=== PATIENT | female | born 1955 | race Caucasian/White ===

== ENCOUNTER → 2016-11-17 | Outpatient (CLI) | payer BC ==
--- NOTE | 2016-11-17 13:39 | CR ---
EXAMINATION: Left knee HISTORY: Osteoarthritis COMPARISON: 03/03/2016 TECHNIQUE: 2 views FINDINGS/IMPRESSION: There is moderate joint space narrowing within the medial compartment of the le ft knee. There is likely a trace suprapatellar joint effusion with moderate osteophytes within all 3 compartments. The osseous structures appear mildly osteopenic without an acute osseous abnormality demonstrated.
== END ==
LOC: MW.CHORTHO 08:00
PROVIDERS: ATTEND Physician Assistant
DX: M17.12 Unilateral primary osteoarthritis, left knee (principal)
CPT/HCPCS: 73560-26-LT; 73560-LT

== ENCOUNTER 2017-08-06 04:42 | Emergency (ER) | payer BC ==
--- NOTE | 2017-08-06 05:01 | EDM.PDOC ---
ED HPI GENERAL MEDICAL PROBLEM - General Stated Complaint: SWELLING IN RIGHT LEG Time Seen by Provider: 08/06/17 04:58 Source of Information: Reports: Patient - History of Present Illness INITIAL COMMENTS - FREE TEXT/NARRATIVE: HISTORY AND PHYSICAL: History of present illness: [Patient presents with right lower extremity swelling as compared to left, she did have some reddening up to her calf level which is improved or still some mild redness no tenderness no fever nausea vomiting chills sweats ] Review of systems: As per history of present illness and below otherwise all systems reviewed and negative. Past medical history: As per history of present illness and as reviewed below otherwise noncontributory. Surgical history: As per history of present illness and as reviewed below otherwise noncontributory. Social history: No reported history of drug or alcohol abuse. Family history: As per history of present illness and as reviewed below otherwise noncontributory. Physical exam: HEENT: Atraumatic, normocephalic, pupils reactive, negative for conjunctival pallor or scleral icterus, mucous membranes moist, throat clear, neck supple, nontender, trachea midline. Lungs: Clear to auscultation, breath sounds equal bilaterally, chest nontender. Heart: S1S2, regular, negative for clicks, rubs, or JVD. Abdomen: Soft, nondistended, nontender. Negative for masses or hepatosplenomegaly. Negative for costovertebral tenderness. Pelvis: Stable nontender. Genitourinary: Deferred. Rectal: Deferred. Extremities: Atraumatic, negative for cords or calf pain. Neurovascular unremarkable. Neuro: Awake, alert, oriented. Cranial nerves II through XII unremarkable. Cerebellum unremarkable. Motor and sensory unremarkable throughout. Exam nonfocal. Diagnostics: [Venous duplex ultrasound ] Therapeutics: [0 though 15 mg by mouth twice a day 21 days Follow-up with primary care for continued management First dose of 0 though provided now ] Impression: DVT Definitive disposition and diagnosis as appropriate pending reevaluation and review of above. - Related Data Allergies Allergy/AdvReac Type Severity Reaction Status Date / Time No Known Allergies Allergy Verified 08/06/17 05:08 Home Meds: Home Meds Ascorbic Acid [Vitamin C] 1 tab PO DAILY 12/10/15 [History] Aspirin [Garrett Aspirin] 81 mg PO DAILY 12/10/15 [History] Calcium Carbonate/Vitamin D3 [Calcium 600-Vit D3 400 Tablet] 1 tab PO DAILY 01/17 [History] Celecoxib [CeleBREX] 200 mg PO DAILY 12/10/15 [History] Cholecalciferol (Vitamin D3) [Vitamin D] 1,000 units PO DAILY 12/10/15 [History] Hydrochlorothiazide 25 mg PO DAILY 12/10/15 [History] Levothyroxine Sodium 88 mcg PO DAILY 12/10/15 [History] Lisinopril 20 mg PO DAILY 12/10/15 [History] Metoprolol Succinate 50 mg PO BEDTIME 12/10/15 [History] Past Medical History HEENT History: Reports: None Cardiovascular History: Reports: Hypertension Respiratory History: Reports: None Musculoskeletal History: Reports: Other (See Below) Other Musculoskeletal History: bilateral knee pain-receives steroid injection, will be scheduling surgery soon. Neurological History: Reports: None Psychiatric History: Reports: None Endocrine/Metabolic History: Reports: Hypothyroidism, Obesity/BMI 30+ Hematologic History: Reports: Blood Transfusion(s) Other Hematologic History: blood transfusion due to complications following gallbladder surgery Immunologic History: Reports: None Oncologic (Cancer) History: Other Oncologic History: endometrial cancer-had surgery, no chemotherapy or radiation. Dermatologic History: Reports: None - Past Surgical History Head Surgeries/Procedures: Reports: None GI Surgical History: Reports: Cholecystectomy Female Surgical History: Reports: Hysterectomy Endocrine Surgical History: Reports: Thyroidectomy Social & Family History - Tobacco Use Smoking Status *Q: Never Smoker - Recreational Drug Use Recreational Drug Use: No Drug Use in Last 12 Months: No ED ROS GENERAL - Review of Systems Review Of Systems: ROS reveals no pertinent complaints other than HPI. ED EXAM, GENERAL - Physical Exam Exam: See Below Course - Vital Signs Last Recorded V/S: Last Vital Signs Temp 98.4 F 08/06/17 05:08 Pulse 62 08/06/17 05:08 Resp 14 08/06/17 05:08 BP 132/60 08/06/17 05:08 Pulse Ox 97 08/06/17 05:08 - Orders/Labs/Meds Orders: Active Orders 24 hr Category Date Time Status Venous Doppler Lwr Ext Rt [US] Stat Exams 08/06/17 04:58 Taken Labs: Laboratory Tests 08/06/17 08/06/17 08/06/17 Range/Units 06:30 06:30 06:30 WBC 6.17 (4.0-11.0) K/uL RBC 3.86 L (4.30-5.90) M/uL Hgb 12.6 (12.0-16.0) g/dL Hct 37.5 (36.0-46.0) % MCV 97.2 (80.0-98.0) fL MCH 32.6 H (27.0-32.0) pg MCHC 33.6 (31.0-37.0) g/dL RDW Std Deviation 44.6 (28.0-62.0) fl RDW Coeff of Oliva 13 (11.0-15.0) % Plt Count 192 (150-400) K/uL MPV 10.10 (7.40-12.00) fL Neut % (Auto) 45.2 L (48.0-80.0) % Lymph % (Auto) 41.2 H (16.0-40.0) % [place] % (Auto) 10.7 (0.0-15.0) % Eos % (Auto) 2.6 (0.0-7.0) % Baso % (Auto) 0.3 (0.0-1.5) % Neut # (Auto) 2.8 (1.4-5.7) K/uL Lymph # (Auto) 2.5 H (0.6-2.4) K/uL [place] # (Auto) 0.7 (0.0-0.8) K/uL Eos # (Auto) 0.2 (0.0-0.7) K/uL Baso # (Auto) 0.0 (0.0-0.1) K/uL Nucleated RBC % 0.0 /100WBC Nucleated RBCs # 0 K/uL INR 1.01 Sodium 142 (136-146) mmol/L Potassium 4.0 (3.5-5.1) mmol/L Chloride 108 (98-110) mmol/L Carbon Dioxide 25 (21-31) mmol/L BUN 21 (6.0-23.0) mg/dL Creatinine 0.7 (0.6-1.5) mg/dL Est Cr Clr Drug Dosing 60.62 mL/min Estimated GFR (MDRD) > 60.0 ml/min Glucose 95 (60-110) mg/dL Calcium 9.2 (8.8-10.8) mg/dL Total Bilirubin 0.5 (0.1-1.5) mg/dL AST 62 H (5-40) IU/L ALT 45 (8-54) IU/L Alkaline Phosphatase 134 (40-150) Total Protein 6.6 (6.0-8.0) g/dL Albumin 4.0 (3.4-4.8) g/dL Globulin 2.6 (2.0-3.5) g/dL Albumin/Globulin Ratio 1.5 (1.3-2.8) Meds: Medications Discontinued Medications Generic Name Dose Route Start Last Admin Trade Name Freq PRN Reason Stop Dose Admin Rivaroxaban 15 mg 08/06/17 06:51 Xarelto PO 08/06/17 06:52 NOW STA Departure - Departure Time of Disposition: 07:02 Disposition: Home, Self-Care 01 Condition: Good Clinical Impression: DVT (deep venous thrombosis) - Discharge Information Referrals: Mack Mcclain MD [Primary Care Provider] - Additional Instructions: Medication as prescribed Continue your current home medications as directed Return if symptoms persist or worsen Follow-up with primary care within 2 weeks for continued management The following information is given to patients seen in the emergency department who are being discharged to home. This information is to outline your options for follow-up care. We provide all patients seen in our emergency department with a follow-up referral. The need for follow-up, as well as the timing and circumstances, are variable depending upon the specifics of your emergency department visit. If you don't have a primary care physician on staff, we will provide you with a referral. We always advise you to contact your personal physician following an emergency department visit to inform them of the circumstance of the visit and for follow-up with them and/or the need for any referrals to a consulting specialist. The emergency department will also refer you to a specialist when appropriate. This referral assures that you have the opportunity for follow-up care with a specialist. All of these measure are taken in an effort to provide you with optimal care, which includes your follow-up. Under all circumstances we always encourage you to contact your private physician who remains a resource for coordinating your care. When calling for follow-up care, please make the office aware that this follow-up is from your recent emergency room visit. If for any reason you are refused follow-up, please contact the [facility] emergency department at and asked to speak to the emergency department charge nurse. - My Orders Last 24 Hours: My Active Orders 08/06/17 04:58 Venous Doppler Lwr Ext Rt [US] Stat - Assessment/Plan Last 24 Hours: My Active Orders 08/06/17 04:58 Venous Doppler Lwr Ext Rt [US] Stat
[2017-08-06] MEDS ORDERED: Rivaroxaban 15 MG Tab PO STA (06:51)
[2017-08-06 06:56] LABS: CHLORIDE,CL 108 mmol/L (98-110); SODIUM,NA 142 mmol/L (136-146)
[2017-08-06 07:39] VITALS: BP 151/65
--- NOTE | 2017-08-06 17:47 | US ---
EXAM DATE: 08/06/17 PATIENT'S AGE: 62 Patient: LILIANA KELLEY Facility: [place], [place] Site . Site : [id number] Study: US Extremity Right [id number]/[id number] 5:58:36 AM Ordering Physician: Doctor Hernandez Final Report: HISTORY: Right calf pain and redness. TECHNIQUE: Deep venous system of right lower extremity was examined using grayscale, color Doppler techniques. Compression was assessed where able to be assessed. FINDINGS: The right common femoral, femoral, popliteal and peroneal veins are patent without thrombus. The right posterior tibial veins are noncompressible with absent flow compatible with DVT. This contrast to the contralateral left posterior tibial veins which demonstrated good flow. Incidental note is made of a small popliteal cyst. IMPRESSION: 1. DVT within right-sided posterior tibial veins. 2. Report was called to Dr. Michelle on 08/06/2017 at 6:04 hours. Dictated by Luan Dias MD @ 08/06/2017 6:06:37 AM Dictated by: Luan Dias MD @ 08/06/2017 06:07:38 (Electronic Signature) Report Signed by Proxy. LAUREN
== END 2017-08-06 07:29 | disposition home or self-care (01) ==
LOC: MW.ED 04:42
DX: I82.409 Acute embolism and thrombosis of unspecified deep veins of unspecified lower extremity (principal); I10 Essential (primary) hypertension; E03.9 Hypothyroidism, unspecified; Z79.82 Long term (current) use of aspirin; Z79.899 Other long term (current) drug therapy; R60.0 Localized edema
CPT/HCPCS: 36415; 80053; 85025; 85379; 85610; 93971; 99284; A9270; 99283

== ENCOUNTER 2021-12-18 17:07 | Emergency (ER) | payer BC ==
[2021-12-18] MEDS ORDERED: Sodium Chloride 0.9% 1,000 ML IV ONE (17:30)
[2021-12-18 18:12] LABS: CARBON DIOXIDE,CO2 27.7 mmol/L (21.0-32.0); POTASSIUM,K 4.2 mmol/L (3.5-5.1)
[2021-12-18 19:05] VITALS: BP 116/51; PULSE 70
== END 2021-12-18 19:03 | disposition home or self-care (01) ==
LOC: MW.ED 17:07
DX: U07.1 COVID-19 (principal); I10 Essential (primary) hypertension; E03.9 Hypothyroidism, unspecified; Z68.28 Body mass index [BMI] 28.0-28.9, adult; Z90.49 Acquired absence of other specified parts of digestive tract; Z79.82 Long term (current) use of aspirin; Z79.899 Other long term (current) drug therapy
CPT/HCPCS: 36415; 71045; 80053; 81003; 83735; 83880; 84443; 84484; 85025; 87635; 93005; 96360; 99285; J7030; 93010; 99284; U0002